=== PATIENT | male | born 1950 | race Caucasian/White ===

== ENCOUNTER 2019-11-22 16:04 | Emergency (ER) | payer MEDICARE, OTHER ==
[2019-11-22 16:33] VITALS: BP 126/88
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
--- NOTE | 2019-11-23 07:21 | UC ---
- Progress Note Progress Note: Normal xray. No change in initial management - EKG/XRAY/CT XRAY: left foot: - Normal Radiograph of left foot Course/Dx - Diagnoses Provider Diagnoses: Metatarsalgia, left foot Discharge ED - Sign-Out/Discharge Documenting (check all that apply): Post-Discharge Follow Up All imaging exams completed and their final reports reviewed: Yes - Discharge Plan Condition: Stable Disposition: HOME Prescriptions: Indomethacin 25 mg PO TID PRN #90 capsule PRN Reason: Pain - Severe Patient Education Materials: Metatarsalgia (DC) Referrals: Abdullahi Simmons MD [Medical Doctor] - 1 Day (consider cortisone injection.) Jed Guajardo MD [Primary Care Provider] - - Billing Disposition and Condition Condition: STABLE Disposition: Home
== END 2019-11-22 17:40 | disposition home or self-care (01) ==
LOC: UCCORT 16:04
DX: M77.42 Metatarsalgia, left foot (principal); M10.9 Gout, unspecified; E11.9 Type 2 diabetes mellitus without complications; I10 Essential (primary) hypertension; Z79.82 Long term (current) use of aspirin; Z79.84 Long term (current) use of oral hypoglycemic drugs; Z95.5 Presence of coronary angioplasty implant and graft; Z96.653 Presence of artificial knee joint, bilateral; Z79.899 Other long term (current) drug therapy; Z87.891 Personal history of nicotine dependence
CPT/HCPCS: 99213; G0463

== ENCOUNTER 2019-11-30 09:13 | Day surgery (SDC) | payer MEDICARE ==
[~2019-11-30 09:13] MED LIST: Acetaminophen TAB* 325 MG PO ONE; Buffered Lidocaine 1% SYRIN* 1 ML/SYRINGE INTRADERM ONE; Lactated Ringers 1000 ML Bag* 1,000 ML IV SCH
[2019-11-30] MEDS ORDERED: Acetaminophen TAB* 325 MG ONE (10:03)
[2019-11-30] MEDS ORDERED: ceFAZolin 2 GM PREMIX in ORs 2 GM/50 ML BAG ONE (10:03)
[2019-11-30] MEDS ORDERED: Buffered Lidocaine 1% SYRIN* 1 ML/SYRINGE INTRADERM ONE (10:03)
[2019-11-30] MEDS ORDERED: Midazolam* 1 MG/ML 2 ML VIAL (2 MG) ONE (10:34)
[2019-11-30] MEDS ORDERED: fentaNYL* 50 MCG/ML 2 ML VIAL (100 MCG VIAL) ONE (10:35)
[2019-11-30] MEDS ORDERED: Propofol* 10 MG/ML 20 ML BTL ONE (10:38)
[2019-11-30] MEDS ORDERED: Lidocaine 2% PF * 5 ML VIAL ONE (10:38)
[2019-11-30] MEDS ORDERED: Insulin REGULAR(*) 1 UNITS UNIT ONE (10:38)
[2019-11-30] MEDS ORDERED: Bupivacaine 0.25% SDV* 30 ML ONE (10:54)
[2019-11-30] MEDS ORDERED: Bupivacaine 0.5%* 50 ML MDV VIAL ONE (10:54)
[2019-11-30] MEDS ORDERED: EPHEDrine (Pressors)* 50 MG/ML VIAL ONE (13:17)
[2019-11-30] MEDS ORDERED: PROCHLORPERAZINE INJ 5 MG/ML 2 ML VIAL IV PRN (13:20)
[2019-11-30] MEDS ORDERED: diPHENhydraMINE IV* 50 MG/ML 1 ml VIAL (BENADRYL) IV PRN (13:20)
[2019-11-30] MEDS ORDERED: Ketorolac INJ* 30 MG/ML 1 ML VIAL IV PRN (13:20)
[2019-11-30] MEDS ORDERED: Naloxone* 0.4 MG/ML 1 ML VIAL IV PRN (13:20)
[2019-11-30] MEDS ORDERED: oxyCODONE TAB* 5 MG TAB PO PRN (13:20)
[2019-11-30] MEDS ORDERED: Phenylephrine 40 MCG/ML SYRINGE ONE (13:24)
[2019-11-30] MEDS ORDERED: Ondansetron INJ* 2 MG/ML VIAL ONE (14:18)
[2019-11-30] MEDS ORDERED: oxyCODONE TAB* 5 MG TAB ONE (14:39)
[2019-11-30] MEDS ORDERED: Ketorolac INJ* 30 MG/ML 1 ML VIAL ONE (14:39)
[2019-11-30 15:49] VITALS: BP 117/71
--- NOTE | 2019-12-01 05:19 | OP ---
DATE OF OPERATION: 11/30/19 - [facility] DATE OF : 54 SURGEON: Ezra Campuzano MD PIN INSERTER: LUL Maciel. An assistant paralegal was needed for the procedure to aid in positioning of the arm and retraction. ANESTHESIOLOGIST: Dr. Gama. ANESTHESIA: General. PRE-OP DIAGNOSIS: Left wrist severe persistent and increased carpal tunnel syndrome after prior carpal tunnel release 3-1/2 months ago. POST-OP DIAGNOSIS: Left wrist severe persistent and increased carpal tunnel syndrome after prior carpal tunnel release 3-1/2 months ago. OPERATIVE PROCEDURE: 1. Revision left wrist carpal tunnel release with nerve wrapping. 2. Hypothenar fat pad transfer to the left wrist and palm. INDICATIONS: Mr. Gonzalez had the carpal tunnel release. At the time, he had intermittent symptoms with all nighttime symptoms almost from the get-go after surgery, he had constantly numb thumb, index, and middle fingers. The small finger and ring finger were largely preserved. He had feeling he could tell, but yet he cannot do small motor activities just because of the numbness. We talked about risks and benefits, he wanted to proceed with surgery. ESTIMATED BLOOD LOSS: 2 mL. COMPLICATIONS: None. FINDINGS: There was an extremely compressive band just at the wrist flexion crease. DESCRIPTION OF PROCEDURE: Mr. Gonzalez was seen in the preoperative holding area. The correct site, side, and procedures were identified. We came back to the operating room where the arm was prepped and draped in the usual fashion and a time- out was performed. I reopened his longitudinal incision and brought this across the wrist in Martine type fashion. Full thickness flaps were raised off the fascia. I opened up the fascia proximally, which looked stillaguamish, it did not look like it had been cut. I came distally and there was a very constrictive band right at the wrist flexion crease that was released. I then released the transverse carpal ligament just off the radial aspect of the hook of the hamate. The release was carried all the way down distally. I released all the fascia proximally several centimeters proximal to the wrist flexion crease. It was obvious that the problem was right wrist flexion crease where there was a compressive band that was hour-glassing the nerve. I placed a vessel loop around the nerve and performed the neurolysis. I then brought an axial guard 7 x 40 mm nerve protector in. I wrapped the nerve and secured the wrap with multiple 6-0 Prolene sutures, sewing the wrap to the wrap , but not to the nerve. After the nerve was wrapped, I went ahead and turned my attention to the hypothenar fat pad transfer, the fat pad was released off the ulnar skin. I mobilized the fat pad preserving the perforating vessels deep. I then swung that over and sewed that to the undersurface of the transverse carpal ligament with 4-0 Vicryl suture. This provided an excellent fatty buffer between the nerve and the skin. Everything was looking very good. At this point, the wound was irrigated out, skin was closed with 4-0 nylon suture. 0.25% Marcaine was infiltrated. The wound was dressed with Xeroform, 4x4, sterile Webril and a cockup wrist splint was applied. She was taken to the recovery room in stable condition. [id number]/CPS #: [id number] MAGALIS
== END 2019-11-30 15:50 | disposition home or self-care (01) ==
LOC: OR 09:13
PROVIDERS: ATTEND Orthopaedic Surgery Hand Surgery
DX: G56.02 Carpal tunnel syndrome, left upper limb (principal); E11.65 Type 2 diabetes mellitus with hyperglycemia; E11.22 Type 2 diabetes mellitus with diabetic chronic kidney disease; N18.9 Chronic kidney disease, unspecified; I25.10 Atherosclerotic heart disease of native coronary artery without angina pectoris; E78.5 Hyperlipidemia, unspecified; F41.9 Anxiety disorder, unspecified; F32.89 Other specified depressive episodes; G47.00 Insomnia, unspecified; F41.8 Other specified anxiety disorders; M15.9 Polyosteoarthritis, unspecified; Z79.84 Long term (current) use of oral hypoglycemic drugs; Z79.4 Long term (current) use of insulin; M10.9 Gout, unspecified; R94.31 Abnormal electrocardiogram [ECG] [EKG]; Z95.5 Presence of coronary angioplasty implant and graft; Z96.652 Presence of left artificial knee joint
CPT/HCPCS: A9270-GY; C1763; J0690; J1885; J2250; J2405; J2704; J3010; J3490